=== PATIENT | female | born 1990 | race African-American/Black ===

== ENCOUNTER 2020-01-13 10:53 | Inpatient (IN) | payer OTHER ==
[2020-01-13 11:12] VITALS: BMI 24.0
[2020-01-13] MEDS ORDERED: hydrALAZINE 20 MG/ML VIAL SLOW IVP PRN (12:34)
[2020-01-13] MEDS: Lactated Ringer's 1,000 ML IV SCH ×3 (12:42→15:35)
[2020-01-13] MEDS ORDERED: Butorphanol Tartrate 1 MG/ML VIAL SLOW IVP PRN (12:48)
--- NOTE | 2020-01-13 13:11 | PDOC.FPROB ---
FMR OB H&P: HPI - History of Present Illness Chief Complaint: Contractions Indentification: 29 y/o at 35.6 wga History of Present Illness: Pt presents to OB triage today after experiencing contractions since last night. Pt stated that she did not start tracking how far apart her contractions were until this morning when they were 5-10 mins/apart. She then started to have contractions every 3-5 mins later this morning and was afraid she was going into labor so she called EMS to transport her to the hospital. She denied VB, LOF, trauma, and endorsed movement and some vaginal discharge. She admitted that she last had sexual intercourse 2-3 weeks ago. Denied dysuria, polyuria, hematuria. Denied HYMAN, blurry vision, CP, SOB, abdominal pain, N/V/D. Primary Care Physician: Jaswinder FMR OB H&P: Current - Care : 4 Para: 3 Gestational age: 35.6 Due date: 02/11/20 - OB Labs Blood type: O RH: positive Antibody Screen: negative HIV: negative RPR: negative HepBsAg: negative Rubella: immune Gonorrhea: negative Chlamydia: negative Pap Smear: last pap 2018 GBS: unknown FMR OB H&P: History - Past Medical History PMH: -asthma -seasonal allergies -bipolar disorder -anxiety -GERD -migraines -hx pyelonephritis (2018) -thrombocytopenia - OB History OB History: - x3 , with SGA for all three children - B[employer]ET MANAGER History BANQUET MANAGER History: none - Surgical History Sx History: -none - Social History Social History: tobacco use in 1st trimester, no etoh, no drug use - Family History Family History: -maternal brother with angelman syndrome -breast ca in paternal aunt FMR OB H&P: Medications - Current Home Medications: Medication Instructions Recorded Confirmed Type Albuterol Sulfate [Albuterol 2.5 mg NEB Q8H PRN 01/13/20 01/13/20 History Sulfate Neb] Vitamin 1 tablet PO DAILY 01/13/20 01/13/20 History hydrOXYzine Pamoate [Hydroxyzine 25 mg PO DAILY 01/13/20 01/13/20 History Pamoate] Allergies/Adverse Reactions: Allergies Allergy/AdvReac Type Severity Reaction Status Date / Time No Known Allergies Allergy Unverified 01/13/20 11:14 FMR OB H&P: ROS - Review of Systems General: denies: fever/chills Eyes: denies: eye pain, vision changes, double vision ENT: denies: nasal congestion, rhinorrhea Cardiovascular: denies: chest pain, palpitation Respiratory: denies: cough, congestion, shortness of breath Gastrointestinal: denies: abdominal pain, indigestion, bloating, cramping, diarrhea, constipation Genitourinary (Female): reports: vaginal discharge. denies: incontinence, dysuria, hematuria, polyuria, vaginal pain, vaginal bleeding, contractions, vaginal pressure Musculoskeletal: denies: pain, stiffness Neurologic: denies: numbness Integumentary: denies: itching, rash Hematologic/Lymphatic: denies: prolonged or excessive bleeding Psychological: denies: depression, anxiety FMR OB H&P: Vital Signs - Maternal Vital signs: Vital Signs - First Documented Temp Pulse Resp BP 98.7 F 69 18 120/56 L 01/13/20 11:03 01/13/20 11:03 01/13/20 11:03 01/13/20 11:03 - Heart Tones Baseline: 140 Variability: moderate Acceleration: absent Deceleration: absent Category: category 1 [place] contractions every: about every 5 minutes FMR OB H&P: Physical Exam - Physical Exam General: NAD, awake, alert and oriented HEENT: normocephalic and atraumatic, PERRLA Neck: supple Heart: RRR, normal S1/S2, no murmurs/rubs/gallops, pulses present General: CTAB, no respiratory distress, good air movement, no rales/rhonchi, no wheezing, no retractions Abdomen: gravid Musculoskeletal: FROM in all four extremities Neurological: no tremor, no focal deficit Skin: no rash Psychiatric: intact recent and remote memory, good judgement and insight, normal mood and affect - Pelvic Exam Vulva: normal hair distribution, no discharge, no blood Cervix: no masses, no lesions, no blood SVE: 3 FMR OB H&P: A/P Disposition: Pt is a 29 y/o at 35.6 wga who presented to OB triage today. 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 continue to monitor FHT and contractions. will reassess afterwards SVE. H&P and plan was discussed with Dr. Boss who agreed with assessment and plan. Addendum - Attending - Attending Attestation Date/Time: 01/13/201919 I personally evaluated the patient and discussed the management with Dr. Esparza. I agree with the History, Examination, Assessment and Plan documented above.
[2020-01-13 14:25] LABS: Bacteria/HPF 4+ HPF (None Seen); Bilirubin Negative (Negative); Blood, Urine Trace (Negative); Clarity Clear (Clear); Glucose, Urine (Dipstick) Normal (Negative); Ketone, Urine 40 mg/dL (Negative); Leukocyte 250 Leu/uL (Negative); Nitrite Negative (Negative); Protein, Urine (Dipstick) Negative (Neg-Trace); RBC/HPF 0-3 HPF (0-3); Specific Gravity, Urine 1.005 (1.002-1.036); Squamous Epithelial 0-3 HPF (0-3); Urobilinogen Normal mg/dL (Less than 2)
[2020-01-13 14:29] LABS: Urine Culture Reflex Yes Yes
[2020-01-13] MEDS ORDERED: Promethazine HCl 25 MG/ML VIAL IM PRN (15:05)
[2020-01-13] MEDS ORDERED: Betamet Acet/Betamet Na Ph 30 MG/5 ML VIAL ONE (15:06)
[2020-01-13] MEDS: Betamet Acet/Betamet Na Ph 30 MG/5 ML VIAL IM SCH (15:21)
[2020-01-13] MEDS: ceFAZolin 1 GM/D5W 1 GM in Premix Bag 1 BAG IVPB SCH (16:27)
[2020-01-13] MEDS: NIFEdipine 10 MG CAP PO SCH ×2 (16:30→22:32)
--- NOTE | 2020-01-13 17:51 | PDOC.BPN ---
<Marely Esparza - Last Filed: 01/13/20 17:49> - Brief Progress Note Encounter Date: 01/13/20 Encounter Time: 14:53 Reassessment on 01/11 @ 14:53. S: Pt was still having pain with contractions upon reassessment and was tearful with her contractions due to the pain. O: -maternal VS: BP: 117/70 HR: 88 -FHT: FHR : 140s, moderate variability, no acels or decels seen at this time. toco shows contractions 3-5 mins apart. -PE: SVE 2.5/3 Assessment/Plan: pt will be admitted for observation. her urine culture was positive for bacteria, WBCs, blood, and leuks, so reflex culture was sent for this. no signs/symptoms of pyleonephritis. ancef started. ordered for steroids and procardia to be given. s/p 1L fluid bolus with continuation of mIVF. pt having considerable pain with contractions, will control with stadol and tylenol. maternal VSS. Discussed this patient with Dr. Boss who agreed with assessment and plan. <Gerald Boss - Last Filed: 01/13/20 19:19> Addendum - Attending - Attending Attestation Date/Time: 01/13/201917 I personally evaluated the patient and discussed the management with Dr. Esparza. I agree with the Assessment and Plan documented above.
[2020-01-13 17:56] LABS: Mean Corpuscular HGB CONC 33.8 g/dL (32.0-36.0); Mean Corpuscular Hemoglobin 28.3 pg (27.0-31.0); Mean Corpuscular Volume 83.9 fL (78.0-98.0); Mean Platelet Volume 10.9 fL (7.4-10.4); Platelet Count 113 thou/uL (130-400); RBC Distribution Width 12.6 % (11.5-14.5); White Blood Cell (WBC) Count 11.4 thou/uL (4.8-10.8)
[2020-01-13 18:34] LABS: HBSAg Index 0.42 S/CO (0-0.99); Hep B Surf Ag Non-Reactive S/CO (NonReactive); Syphilis Antibody Nonreactive (Nonreactive); Syphilis Antibody Index 0.05 S/CO (<1.00 Non-Reactive)
[2020-01-13] MEDS: Acetaminophen 500 MG TAB PO PRN (18:38)
[2020-01-13] MEDS: Butorphanol Tartrate 1 MG/ML VIAL SLOW IVP PRN ×2 (18:39→21:18)
[2020-01-13] MEDS: Ondansetron PF 4 MG/2 ML Vial IVP PRN (22:20)
--- NOTE | 2020-01-13 22:53 | PDOC.LDPN ---
Labor & Delivery Progress Note - Subjective Subjective: comfortable - Objective Vital signs reviewed and normal: yes General: NAD Uterine fundus: non tender [place] contractions every: 6-8 min Plan: continue plan of care -: Pt is a 29 y/o at 35.6 wga admitted for observation for contractions ##sIUP 35.6 -SVE at [facility] last week was 04/07/-3. SVE @ 1224 was 2.5/-3. Recheck at 1400 unchanged at 2.5/-3 -stadol for ctx pain -s/p 1 L bolus. Continue maintanence fluids -maternal VSS -maternal labs neg -contractions now every 7-8 min, FHT 120 baseline -Received steroids, procardia ##UTI UA positive for bacteria, WBCs, blood, and leuks -Started Ancef -Culture pending ## with supervision by MFM -hx of SGA in previous 3 deliveries -maternal hx of angelman syndrome in brother -baby with R club foot, confirmed on u/s -marginal placental cord insertion with appropriate growth -MFM have now signed off as of 01/04 ##hx of asthma -on proair and symbicort and singulair -no recent exacerbations ##hx of GERD -aware, on medication ##psych hx of anxiety and bipolar disorder -aware, on atarax prn Plan: Continue plan of care. VVS. Contractions now spacing out. Addendum - Attending - Attending Attestation Date/Time: 01/14/20 9880 I personally evaluated the patient and discussed the management with Dr. Mcdowell. I agree with the History, Examination, Assessment and Plan documented above.
[2020-01-14] MEDS: ceFAZolin 1 GM/D5W 1 GM in Premix Bag 1 BAG IVPB SCH ×3 (00:38→17:26)
[2020-01-14] MEDS: Lactated Ringer's 1,000 ML IV SCH ×3 (00:42→18:48)
--- NOTE | 2020-01-14 01:28 | PDOC.LDPN ---
Labor & Delivery Progress Note - Subjective Subjective: painful contractions, other (Complains of milky white vaginal dis charge, denies sudden LOF) - Objective Vital signs reviewed and normal: yes General: resting Uterine fundus: non tender Dilation: 4 Effacement: 50% Station: -2 [place] contractions every: Irregular, ~10min Other exam findings: Frothy, white vaginal discharge present with scant blood -: Pt is a 29 y/o at 35.6 wga admitted for observation for contractions ##sIUP 35.6 -SVE at [facility] last week was 04/07/3. -stadol for ctx pain -s/p 1 L bolus. Continue maintanence fluids -maternal VSS -maternal labs neg -contractions now irregular occuring ~ 10 min, FHT 120 baseline -Received steroids, procardia 1224 2.525/-3 1400 2.5/25/-3 0130 /-2 ##Vaginal discharge -VP3, chlamydia, gonorrhea, amnisure swab completed ##UTI UA positive for bacteria, WBCs, blood, and leuks -Started Ancef -Culture pending ## with supervision by MFM -hx of SGA in previous 3 deliveries -maternal hx of angelman syndrome in brother -baby with R club foot, confirmed on u/s -marginal placental cord insertion with appropriate growth -MFM have now signed off as of 01/04 ##hx of asthma -on proair and symbicort and singulair -no recent exacerbations ##hx of GERD -aware, on medication ##psych hx of anxiety and bipolar disorder -aware, on atarax prn Plan: VVS. Contractions now spacing out. Continue plan of care Addendum - Attending - Attending Attestation Date/Time: 01/14/20 0782 I personally evaluated the patient and discussed the management with Dr. Mcdowell. I agree with the History, Examination, Assessment and Plan documented above.
[2020-01-14 01:52] LABS: Amnisure Test No Membranes Rupture (No Rupture)
[2020-01-14 01:53] LABS: Amnisure Internal Control QC ACCEPTABLE (ACCEPTABLE)
[2020-01-14] MEDS: Butorphanol Tartrate 1 MG/ML VIAL SLOW IVP PRN (03:28)
[2020-01-14] MEDS: NIFEdipine 10 MG CAP PO SCH (04:37)
--- NOTE | 2020-01-14 05:18 | PDOC.LDPN ---
Labor & Delivery Progress Note - Subjective Subjective: comfortable - Objective Vital signs reviewed and normal: yes General: NAD, resting Uterine fundus: non tender [place] contractions every: ~10 min Plan: continue plan of care -: Pt is a 29 y/o at 35.6 wga admitted for observation for contractions ##sIUP 35.6 -SVE at [facility] last week was 04/07/-3. -stadol for ctx pain -s/p 1 L bolus. Continue maintanence fluids -maternal VSS -maternal labs neg -contractions irregular: resolved for ~30 minutes then resumed occurring around every 10 minutes, FHT 120 baseline -Received steroid #1 dose, procardia 1224 2.525/-3 1400 2.5/25/-3 0130 4/-2 ##Vaginal discharge -VP3, chlamydia, gonorrhea, amnisure swab completed ##UTI UA positive for bacteria, WBCs, blood, and leuks -Started Ancef -Culture pending ## with supervision by MFM -hx of SGA in previous 3 deliveries -maternal hx of angelman syndrome in brother -baby with R club foot, confirmed on u/s -marginal placental cord insertion with appropriate growth -MFM have now signed off as of 01/04 ##hx of asthma -on proair and symbicort and singulair -no recent exacerbations ##hx of GERD -aware, on medication ##psych hx of anxiety and bipolar disorder -aware, on atarax prn Plan: Continue plan of care Addendum - Attending - Attending Attestation Date/Time: 01/14/20 7229 I personally evaluated the patient and discussed the management with Dr. Mcdowell. I agree with the Assessment and Plan documented above.
[2020-01-14] MEDS ORDERED: Albuterol 200 PUFF (6.7GM INHALER) INH PRN (07:24)
[2020-01-14] MEDS: Acetaminophen 500 MG TAB PO PRN (08:23)
[2020-01-14] MEDS ORDERED: NS / Oxytocin 40 units/1000ml 1,000 ML IV PRN (08:51)
[2020-01-14] MEDS ORDERED: Lidocaine 1% (PF) 30 ML VIAL SC PRN (08:51)
[2020-01-14] MEDS ORDERED: Morphine 2 MG/ML VIAL SLOW IVP PRN (08:55)
[2020-01-14] MEDS ORDERED: Ibuprofen 800 MG TAB PO PRN (08:57)
[2020-01-14] MEDS ORDERED: Methylergonovine 0.2 MG/ML VIAL IM PRN (08:57)
[2020-01-14] MEDS ORDERED: Misoprostol 200 MCG TAB PR PRN (08:57)
[2020-01-14] MEDS ORDERED: HYDROcodone/Acetaminophen 5/325 mg Tablet PO PRN (08:57)
[2020-01-14] MEDS ORDERED: hydrOXYzine Pamoate 25 mg Capsule PO SCH (09:00)
[2020-01-14] MEDS ORDERED: Prenatal Vitamin 1 TAB PO SCH (09:00)
[2020-01-14] MEDS ORDERED: Morphine 4 MG/ML VIAL ONE (09:04)
[2020-01-14] MEDS: Betamet Acet/Betamet Na Ph 30 MG/5 ML VIAL IM SCH ×2 (09:17→17:26)
--- NOTE | 2020-01-14 09:27 | PDOC.LDPN ---
Labor & Delivery Progress Note - Subjective Subjective: painful contractions - Objective Vital signs reviewed and normal: yes General: breathing through contractions Dilation: 7 Effacement: 50% (60%) Station: -2 FHT: category 1 [place] contractions every: 10-12 minutes Resuscitative measures: maternal IV fluids - Assessment (1) Current Visit: Yes Status: Acute (2) labor in third trimester Code(s): O60.03 - LABOR WITHOUT DELIVERY, THIRD TRIMESTER Current Visit: Yes Status: Acute (3) UTI (urinary tract infection) Current Visit: Yes Status: Acute (4) Asthma Code(s): J45.909 - UNSPECIFIED ASTHMA, UNCOMPLICATED Current Visit: Yes Status: Acute (5) Thrombocytopenia Code(s): D69.6 - THROMBOCYTOPENIA, UNSPECIFIED Current Visit: Yes Status: Acute (6) Anxiety Code(s): F41.9 - ANXIETY DISORDER, UNSPECIFIED Current Visit: Yes Status: Acute (7) Bacterial vaginosis in Code(s): O23.599 - INFECTION OTH PRT GENITAL TRACT IN , UNSP TRIMESTER; B96.89 - OTH BACTERIAL AGENTS THE CAUSE OF DISEASES CLASSD ELSWHR Current Visit: Yes Status: Acute (8) [place] infection Code(s): B37.9 - CANDIDIASIS, UNSPECIFIED Current Visit: Yes Status: Acute Plan: continue plan of care -: 29 y/o at 36 wga admitted for observation for contractions. ##sIUP @ 36 WGA with contractions, now in active labor -Now appears contractions were likely induced by multiple infections including a presumptive E coli UTI, BV & vulvovaginal candidiasis. GC/Chlamydia swabs also pending. -SVE at [facility] last week was 04/07/3 1224 on 01/13 2.5/-3 1400 on 01/13 2.5/-3 0130 today /-2 0842 today 2 -Continue maintenance fluids w/ LR @ 125mL/hr -maternal VSS -contractions q10-12 minutes w/ cat 1 strip. Now in active labor based on most recent SVE. Will change to inpatient status in anticipation of inevitable delivery. -Will d/c procardia & give PRN morphine IV for pain. Patient does not desire an epidural. -Received steroid #1 dose @ ~1521 yesterday. Will give second dose now. -GBS unknown but swab done an admission & still pending. Will continue Ancef for UTI but also for coverage for possible GBS colonization. -Will recheck cervix in 2-3 hrs and/or if patient reports increased pressure of ROM. ##Vulvovaginal candidiasis: - + on VP3, will treat PP. ##BV: - + on VP3, will treat PP. ##presumed E coli UTI -UA positive for bacteria, WBCs, blood, and leuks on admission -prelim Culture showing E coli, final Cx still pending -Started Ancef on admission, 1g Q8HR & will continue until delivery for GBS PPX as well as noted above. ##High risk with supervision by MFM -hx of SGA in previous 3 deliveries but all term -maternal hx of angelman syndrome in brother -baby with R club foot, confirmed on u/s -marginal placental cord insertion with appropriate growth -MFM signed off as of 01/04 per chart review ##hx of asthma -on proair and symbicort and singulair -no recent exacerbations -Continue proair PRN inpatient, no hemabate in setting of PPH ##hx of GERD -aware, on medication ##psych hx of anxiety and bipolar disorder -aware, on atarax prn, will continue Plan: Will change to inpatient status for continued routine labor management.
[2020-01-14 10:35] LABS: SARS-CoV-2 MS2 Positive; SARS-CoV-2 N Gene Negative; SARS-CoV-2 S Gene Negative; SARS-CoV-2 by NAA Not Detected (NotDetected); SARS-CoV-2 orf1ab Negative
--- NOTE | 2020-01-14 13:15 | PDOC.LDPN ---
Labor & Delivery Progress Note - Subjective Subjective: painful contractions - Objective Vital signs reviewed and normal: yes General: breathing through contractions Dilation: 7 Effacement: 75% Station: -2 FHT: category 2 (minimal variability) [place] contractions every: 9-15 minutes AROM: clear fluid Resuscitative measures: maternal IV fluids, maternal position change - Assessment (1) Current Visit: Yes Status: Acute Qualifiers: Weeks of gestation: 36 weeks Qualified Code(s): Z3A.36 - 36 weeks gestation of (2) labor in third trimester Code(s): O60.03 - LABOR WITHOUT DELIVERY, THIRD TRIMESTER Current Visit: Yes Status: Acute Qualifiers: Fetus number: single or unspecified fetus (3) UTI (urinary tract infection) Current Visit: Yes Status: Acute (4) Asthma Code(s): J45.909 - UNSPECIFIED ASTHMA, UNCOMPLICATED Current Visit: Yes Status: Chronic Qualifiers: Asthma severity: mild Asthma persistence: intermittent (5) Thrombocytopenia Code(s): D69.6 - THROMBOCYTOPENIA, UNSPECIFIED Current Visit: Yes Status: Acute (6) Anxiety Code(s): F41.9 - ANXIETY DISORDER, UNSPECIFIED Current Visit: Yes Status: Chronic (7) Bacterial vaginosis in Code(s): O23.599 - INFECTION OTH PRT GENITAL TRACT IN , UNSP TRIMESTER; B96.89 - OTH BACTERIAL AGENTS THE CAUSE OF DISEASES CLASSD ELSWHR Current Visit: Yes Status: Acute (8) [place] infection Code(s): B37.9 - CANDIDIASIS, UNSPECIFIED Current Visit: Yes Status: Acute Plan: continue plan of care, resuscitative measures -: 29 y/o at 36 WGA admitted for observation for contractions. ##sIUP @ 36 WGA with contractions, now in active labor -Appears contractions were likely induced by multiple infections including a presumptive E coli UTI, BV & vulvovaginal candidiasis. GC/Chlamydia swabs also pending. -SVE at [facility] last week was 3 1224 on 01/13 2.5/-3 1400 on 01/13 2.08/10/-3 0130 today /-2 0842 today /-2 1300 today /-2 -maternal VSS -AROM completed following cervical check as no dilatation progress was made. Clear fluid noted & FHTs now with minimal variability but baseline in the 130s. No decels or accels. Will continue to monitor closely & attempt to correct with maternal position change &/or D5LR for mIVFs. Contractions now q5-9 minutes apart following rupture. -Will continue PRN morphine IV for pain judiciously. Patient does not desire an epidural. -Received steroid #1 dose @ ~1521 yesterday & second dose this AM. -GBS unknown but swab done an admission & still pending. Will continue Ancef for UTI but also for coverage for possible GBS colonization. -Will recheck cervix in ~1 hrs and/or if patient reports increased pressure. ##Vulvovaginal candidiasis: - + on VP3, will treat PP. ##BV: - + on VP3, will treat PP. ##presumed E coli UTI -UA positive for bacteria, WBCs, blood, and leuks on admission -prelim Culture showing E coli, final Cx still pending -Started Ancef on admission, 1g Q8HR & will continue until delivery for GBS PPX as well as noted above. ##Thrombocytopenia - Plts 127 in 11/2019 & 113 on admission. PPH meds ordered w/ exception of hemabate due to asthma history if needed PP. ##High risk with supervision by MFM -hx of SGA in previous 3 deliveries but all term -maternal hx of angelman syndrome in brother -baby with R club foot, confirmed on u/s -marginal placental cord insertion with appropriate growth -[facility] signed off as of 01/04 per chart review ##hx of asthma -on proair and symbicort and singulair -no recent exacerbations -Continue proair PRN inpatient, no hemabate in setting of PPH ##hx of GERD -aware, on medication ##psych hx of anxiety and bipolar disorder -aware, on atarax prn, will continue Plan: Will continue routine labor management.
[2020-01-14] MEDS ORDERED: NS / Oxytocin 40 units/1000ml 1,000 ML ONE (13:44)
[2020-01-14] MEDS ORDERED: Lidocaine 1% (PF) 30 ML VIAL ONE (13:44)
[2020-01-14] MEDS ORDERED: NS w/ Oxytocin 10 units 500 ML IV SCH (14:00)
--- NOTE | 2020-01-14 15:47 | PDOC.OPDEL ---
OB Operative/Delivery Note - Findings A Sex: male - 1 min: 8 - 5 min: 9 - Additional Findings/Plan Compilations/Other Findings: Delivering Physician: Dr. Dylon Schmitz Attending: Dr. Brandon Lynch Procedure: Spontaneous Vaginal Delivery Anesthesia: None QBL: 75 ml Pre-op Diagnosis: 1. Pre-term intrauterine in labor, s/p steroids x2 2. UTI 3. club foot on US Post-op Diagnosis: 1. Pre-term intrauterine , delivered 2. UTI 3. club foot, confirmed Indications: A 29 y/o female presented with contractions, found to have UTI, admitted and received IV abx and steroids. Delivery Note: This is 29yo F @ 36.0 wks who delivered a viable M at 1514 on 01/13. Following a stable antepartum course, a vigorous male was delivered over an intact perineum in the OP position. Anterior shoulder and then remainder of the body delivered. No nuchal cord. The head was held down and mouth and nares were bulb suctioned. Cord clamped after delayed cord clamping and cut and cord blood collected. Placenta delivered intact with a 3 vessel cord noted. Fundal massage was performed and the fundus was firm. The cervix and vagina were inspected, a small right periurethral abrasion was identified and was hemostatic and approximated in natural position. Infant went to nursery in good condition for routine care. Apgars were 8/9 at 1 & 5 minutes, respectively. Patient tolerated delivery well and went to after routine recovery/care.
[2020-01-14] MEDS: Ondansetron PF 4 MG/2 ML Vial IVP PRN (16:49)
[2020-01-14] MEDS ORDERED: Bisacodyl 10 MG SUPP PR PRN (17:34)
[2020-01-14] MEDS ORDERED: NS / Oxytocin 40 units/1000ml 1,000 ML IV SCH (17:34)
[2020-01-14] MEDS ORDERED: diphenhydrAMINE 25 MG CAP PO PRN (17:34)
[2020-01-14] MEDS ORDERED: Milk Of Magnesia 30 ML UDCUP PO PRN (17:34)
[2020-01-14] MEDS ORDERED: Preparation H Ointment 28 GM TUBE PR PRN (17:34)
[2020-01-14] MEDS ORDERED: Benzocaine-Menthol 82.5 ML CAN TOP PRN (17:34)
[2020-01-14] MEDS ORDERED: Ondansetron PF 4 MG/2 ML Vial IVP PRN (17:34)
[2020-01-14] MEDS ORDERED: hydrALAZINE 20 MG/ML VIAL SLOW IVP PRN (17:34)
[2020-01-14] MEDS: Ferrous Sulfate 325 MG TAB PO SCH (18:47)
[2020-01-14] MEDS ORDERED: Sodium Chloride 0.9% 10 ML ONE (19:21)
[2020-01-14] MEDS ORDERED: metroNIDAZOLE 500 MG TAB PO SCH (21:00)
[2020-01-14] MEDS: Cephalexin 250 MG CAP PO SCH (21:32)
[2020-01-14] MEDS: Docusate Calcium (SURFAK) 240 MG CAP PO SCH (21:32)
[2020-01-14] MEDS: Ibuprofen 800 MG TAB PO SCH (22:00)
[2020-01-14] MEDS ORDERED: HYDROcodone/Acetaminophen 5/325 mg Tablet PO SCH (22:15)
[2020-01-15] MEDS: Ibuprofen 800 MG TAB PO SCH ×3 (00:54→17:33)
[2020-01-15] MEDS ORDERED: Acetaminophen 325 MG TAB PO PRN (02:50)
[2020-01-15] MEDS: Ondansetron ODT 4 MG TAB PO PRN ×3 (06:40→21:26)
--- NOTE | 2020-01-15 08:46 | PDOC.PP ---
Post Progress Note Post Day #: 2 Subjective: Vaginal pain improving. Urinary sx resolving. Pumping to increase milk let down. PO intake tolerated: yes Flatus: yes Ambulation: yes Vital Signs (12 hours) Temp Pulse Resp BP 01/15/20 03:19 97.9 F 57 L 20 139/73 Weight Weight 67.585 kg - Physical Examination General: NAD Cardiovascular: RRR Respiratory: clear to auscultation bilaterally, non-labored breathing Abdominal: + bowel sounds, lochia (less then normal menstruation), appropriately TTP Skin: no rash Neurological: no gross focal deficits Psychiatric: A&Ox3, normal affect Result Diagrams: 01/13/20 17:38 Additional Labs: Post Labs Hep Bs Antigen Non-Reactive S/CO (NonReactive) 01/13/20 17:38 Blood Type O POSITIVE 01/13/20 18:10 - Assessment/Plan @ 36wks on 01/13 - pain control improving with joao ibuprofen, rec dermoplast for vaginal pain - continue routine post care UTI - sensitivities resulted to e. coli bacteruria, switched from ancef to keflex - symptomatically improving Dispo: Expect DC tomorrow pending babies status as is tory + and ABO in compatible going on lights today
[2020-01-15] MEDS ORDERED: Fluconazole 100 MG TAB PO SCH (09:00)
[2020-01-15] MEDS: Ferrous Sulfate 325 MG TAB PO SCH ×2 (09:09→13:32)
[2020-01-15] MEDS: Cephalexin 250 MG CAP PO SCH ×2 (09:12→21:26)
[2020-01-15] MEDS: Docusate Calcium (SURFAK) 240 MG CAP PO SCH ×2 (09:13→21:28)
[2020-01-15] MEDS: metroNIDAZOLE 500 MG TAB PO SCH ×2 (09:13→21:25)
[2020-01-15] MEDS: Prenatal Vitamin 1 TAB PO SCH (09:13)
[2020-01-15] MEDS: Acetaminophen 500 MG TAB PO PRN ×3 (09:16→21:26)
[2020-01-15] MEDS ORDERED: Lanolin Ointment 7 GM TUBE TOP PRN (10:58)
[2020-01-15] MEDS ORDERED: Witch Hazel-Glycerin 1 EACH JAR TOP PRN (14:43)
[2020-01-15 19:16] LABS: Chlamydia by PCR Not Detected (NotDetected); GC by PCR Not Detected (NotDetected)
[2020-01-16] MEDS: Ibuprofen 800 MG TAB PO SCH ×2 (05:31→14:01)
--- NOTE | 2020-01-16 07:36 | PDOC.PP ---
Post Progress Note Post Day #: 3 Subjective: + Flatus but no BM. Vaginal pain significantly improved. No other complaints. PO intake tolerated: yes Flatus: yes Ambulation: yes Vital Signs (12 hours) Temp Pulse Resp BP Pulse Ox 01/15/20 21:30 98.6 F 56 L 18 134/76 99 Weight Weight 67.585 kg - Physical Examination General: NAD Cardiovascular: RRR Respiratory: clear to auscultation bilaterally, non-labored breathing Abdominal: + bowel sounds, no distention Neurological: no gross focal deficits Psychiatric: A&Ox3, normal affect Result Diagrams: 01/13/20 17:38 Additional Labs: Post Labs Hep Bs Antigen Non-Reactive S/CO (NonReactive) 01/13/20 17:38 Blood Type O POSITIVE 01/13/20 18:10 - Assessment/Plan @ 36wks on 01/13 - pain controlled - continue routine post care - f/u @ 6 weeks at [facility] UTI - Continue keflex for additional 3 days upon DC BV - Continue flagyl for additional 5 days upon DC Dispo: DC today. F/u in 6 weeks at [facility]
[2020-01-16] MEDS: Ferrous Sulfate 325 MG TAB PO SCH ×2 (07:39→15:02)
[2020-01-16] MEDS: Prenatal Vitamin 1 TAB PO SCH (08:15)
[2020-01-16] MEDS: Docusate Calcium (SURFAK) 240 MG CAP PO SCH (08:15)
[2020-01-16] MEDS: Cephalexin 250 MG CAP PO SCH (08:16)
[2020-01-16] MEDS: metroNIDAZOLE 500 MG TAB PO SCH (08:16)
[2020-01-16] MEDS: Ondansetron ODT 4 MG TAB PO PRN ×2 (08:16→11:51)
[2020-01-16 11:30] VITALS: BP 113/56; TEMP 98.6
== END 2020-01-16 15:55 | disposition home or self-care (01) | DRG 805 ==
LOC: L&D/OP 10:53 → L&D-LIB 15:05 → OBSVTOIN 01-14 08:50 → 3SE 01-14 18:32
PROVIDERS: ADMIT Obstetrics & Gynecology; ATTEND Obstetrics & Gynecology
PROC: 10E0XZZ Delivery of Products of Conception, External Approach (ICD-10-PCS; principal; 2020-01-14)
PROC: 10907ZC Drainage of Amniotic Fluid, Therapeutic from Products of Conception, Via Natural or Artificial Opening (ICD-10-PCS; 2020-01-14)
PROC: 0UQMXZZ Repair Vulva, External Approach (ICD-10-PCS; 2020-01-14)
DX: O99.344 Other mental disorders complicating childbirth (principal); O75.3 Other infection during labor; Z37.0 Single live birth; O60.14X0 Preterm labor third trimester with preterm delivery third trimester, not applicable or unspecified; O99.354 Diseases of the nervous system complicating childbirth; N39.0 Urinary tract infection, site not specified; O99.12 Other diseases of the blood and blood-forming organs and certain disorders involving the immune mechanism complicating childbirth; O98.82 Other maternal infectious and parasitic diseases complicating childbirth; O72.1 Other immediate postpartum hemorrhage; G43.909 Migraine, unspecified, not intractable, without status migrainosus; K21.9 Gastro-esophageal reflux disease without esophagitis; F41.9 Anxiety disorder, unspecified; F31.9 Bipolar disorder, unspecified; J45.909 Unspecified asthma, uncomplicated; O99.62 Diseases of the digestive system complicating childbirth; O99.52 Diseases of the respiratory system complicating childbirth; D69.6 Thrombocytopenia, unspecified; Z3A.35 35 weeks gestation of pregnancy; Z79.51 Long term (current) use of inhaled steroids; B37.3 Candidiasis of vulva and vagina; B96.20 Unspecified Escherichia coli [E. coli] as the cause of diseases classified elsewhere; O71.82 Other specified trauma to perineum and vulva; Z20.828 Contact with and (suspected) exposure to other viral communicable diseases
CPT/HCPCS: 36415; 76815; 81001; 84112; 85027; 86780; 86850; 86900; 86901; 87077; 87081; 87086; 87186; 87340; 87480; 87491; 87510; 87591; 87635; 87660; 96365; 96372; 96375; 96376; 99285; G0378; J0595; J0690; J0702; J2270; J2405; Q0162; U0003